=== PATIENT | female | born 1965 | race Caucasian/White ===

== ENCOUNTER 2020-11-18 10:11 | Emergency (ER) | payer OTHER ==
[~2020-11-18] VITALS: Ht 167.6 cm; Wt 68.0 kg
[~2020-11-18 10:11] MED LIST: ESTRACE0.5 MG PO; FLEXERIL PO; NAPROSYN375 MG PO; PROVERA2.5 MG PO; VICODIN 5-5001 EACH PO
[2020-11-18] MEDS ORDERED: AMITRIPTYLINE H10 M1 PO (10:25)
[2020-11-18 10:58] LABS: URINE BILIRUBIN NEGATIVE (Negative); URINE BLOOD 3+ (Negative); URINE CLARITY CLOUDY; URINE COLOR BROWN; URINE GLUCOSE-RANDOM NEGATIVE (Negative); URINE KETONES NEGATIVE (Negative); URINE LEUKOCYTES-REFLEX TRACE (Negative); URINE NITRITE-REFLEX NEGATIVE (Negative); URINE PROTEIN NEGATIVE (Negative); URINE UROBILINOGEN 0.2 E.U./dl (0.2-1.0)
[2020-11-18 11:03] LABS: ABSOLUTE BASOPHILS 0.1 thou/uL (0.0-0.2); ABSOLUTE MONOCYTES 0.8 thou/uL (0.0-1.2); ABSOLUTE NEUTROPHILS 7.5 thou/uL (1.6-8.1); BASOPHILS 0.8 %; HEMATOCRIT 41.5 % (37.0-47.0); HEMOGLOBIN 13.8 gm/dL (12.0-15.0); LYMPHOCYTES 19.3 %; MCH 29.6 pg (26.0-34.0); MCHC 33.1 g/dL (28.0-37.0); MCV 89.3 fL (80.0-100.0); MONOCYTES 7.9 %; MPV 7.5 fl. (7.2-11.1); NUCLEATED RBCS 0 /100WBC; PLATELET COUNT* 267 thou/uL (150-400); RBC 4.65 mil/uL (4.20-5.00); RDW-CV 13.9 % (10.5-14.5); WBC 10.4 thou/uL (4.0-11.0)
[2020-11-18 11:25] LABS: ALBUMIN 3.7 g/dL (3.4-5.0); CALCIUM 8.7 mg/dL (8.5-10.1); CREATININE 1.2 mg/dL (0.6-1.3); POTASSIUM 3.4 mmol/L (3.5-5.1); TOTAL BILIRUBIN 0.4 mg/dL (<0.1-1.0); TOTAL PROTEIN 6.8 g/dL (6.4-8.2)
[2020-11-18 11:38] LABS: CASTS None Seen /LPF (None Seen); CRYSTALS None Seen /LPF (None Seen); MUCUS 0-3 Light strn/LPF (None Seen); URINE RBC >20 Many /HPF (0-2)
[2020-11-18] MEDS ORDERED: HYDROCODON-ACE1 EAC7 PO (13:16)
[2020-11-18] MEDS ORDERED: KEFLEX500 M1 PO (13:16)
[2020-11-18] MEDS ORDERED: ZOFRAN ODT4 MG DISSOLVE (13:16)
[2020-11-18 18:18] LABS: SQUAMOUS 0-3 Few /LPF (0-3)
[2020-11-18 18:19] LABS: URINE WBC-REFLEX 0-5 Rare /HPF (0-5)
--- NOTE | 2020-11-19 10:29 | EKG ---
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
== END 2020-11-18 13:32 | disposition home or self-care (01) ==
LOC: M.ERS 10:11
PROVIDERS: Emergency Medicine Emergency Medical Services
DX: N20.0 Calculus of kidney (principal)